=== PATIENT | female | born 1975 | race Caucasian/White ===

== ENCOUNTER 2018-12-11 13:01 | Observation (INO) | payer SELFPAY ==
[2018-12-04 16:15] LABS: Hematocrit 38.7 % (37-47); Hemoglobin 12.2 g/dl (12.0-15.0); Mean Corp Hgb Conc 31.5 g/gl (32-36); Mean Corpuscular Hgb 27.4 pg (27.0-32.0); Mean Corpuscular Volume 86.8 fL (81-99); Mean Platelet Vol. 9.4 fl (6.2-12.0); Platelet Count 419 K/mm3 (150-450); RBC Distribution Width CV 14.8 % (11.6-14.6); RBC Distribution Width SD 46.7 fl (35.1-43.9); Red Blood Count 4.46 M/mm3 (4.2-5.4); White Blood Count 7.2 K/mm3 (4.4-11.0)
[2018-12-04 16:16] LABS: Scan Indicated on CBC? Y/N NO
[2018-12-04 16:28] LABS: Partial Thromboplast Time 28.6 Seconds (24.1-36.2); Prothrombin Time (Protime)PT. 13.1 SECONDS (11.7-14.9)
[2018-12-04 16:38] LABS: Anion Gap 7 (5-15); BUN 12 mg/dL (7-18); BUN/Creat Ratio 16.5 RATIO (10-20); Calcium,Total 8.7 mg/dL (8.5-10.1); Chloride 107 mmol/L (98-107); Creatinine, Serum 0.73 mg/dL (0.55-1.02); EST Glomerular Filtration Rate 94 mL/min (>60); Est Glom Filt Rate - Afr Amer 113 mL/min (>60); Glucose 86 mg/dL (74-106); Potassium 3.5 mmol/L (3.5-5.1); Sodium Level 141 mmol/L (136-145)
[2018-12-11] VITALS (13 sets, daily range): BP systolic 85–124; BP diastolic 54–71; PULSE 56–78; RESP 16–18; TEMP 36.2–37.6; O2SAT 91–100; BMI 36.9
--- NOTE | 2018-12-11 00:33 | PCM.HPOB.BLA ---
- Problem List (1) Uterine fibroid Status: Acute Qualifiers: Uterine leiomyoma location: unspecified location Qualified Code(s): D25.9 - Leiomyoma of uterus, unspecified (2) Chronic pelvic pain in female Status: Chronic History and Physical Date of Admission: 12/11/18 Date: 12/11/2018 Name: VENESSA ADORNO Age: 43 Date of : 1975 Venessa Adorno, a 43 year old female 0 , presents for MICHELLE CHAVEZ on December 11, 2018 at 11:20. -- Pre-Op -- Venessa was referred for fibroids that have been found on u/s with PCP. Patient was seen by PCP beginning for pelvic pain she has been experiencing. Patient states that pain started about 6 months ago and was mostly with menses she states that over the past couple of months pain has started to be daily. Patient states that she conitnues with pain daily feels like she is going to start menses. Patient states that pain will radiate to her back. Patient has h/o normal pap's with most recent pap in 2019. Patient states that menses are regular and monthly. Patient and are not using anything for control with prior hx male factor infertility. Plan for LAVH/BS on 12-11-18. MEDICATIONS HISTORY: None ALLERGIES: No Known Drug Allergies Infections - Chicken pox Illnesses - none Accidents - None Hospitalizations - None pap 2018; Review of Systems: GENERAL - Denies fever, or chills SKIN - Denies skin changes EYES - Denies visual changes EARS - Denies difficulty hearing NOSE - Denies nasal congestion or bleeding MOUTH - Denies sore throat or difficulty swallowing NECK - Denies pain or swelling RESPIRATORY - Denies shortness of breath or wheezing CARDIOVASCULAR - Denies palpitations or chest pain GASTROINTESTINAL - Denies nausea, vomiting, diarrhea, constipation GENITOURINARY - Denies dysuria, frequency of urination, incontinence of urine MUSCULOSKELETAL - Denies joint or muscle pain NEUROLOGICAL - Denies localized numbness or weakness PSYCHIATRIC - Denies depression or anxiety ENDOCRINE - Denies heat or cold intolerance, weight loss or gain HEMATO-IMMUNOLOGIC - Denies excesive bleeding with cuts SOCIAL HISTORY: Alcohol Use - denies drinking Smoking - denies smoking Diet - no special diet Lifestyle - Exercise - active Seat Belt Use - only when riding in the front Employer - stays at home Illicit Drug Use - denies use of street drugs Sexual Activity - Spouse-Sig Other Name - Jose Spouse-Sig Other Occupation - [employer] Control - none FAMILY HISTORY: MENSTRUAL HISTORY: LMP Known?- DefiniteAmount/Duration - 4- 5days, Regularity - regular, Frequency - monthly days, LMP - 12/01/18, Age Onset Menarche - 16 SURGICAL HISTORY: 1. [place] Teeth Removal ; - PHYSICAL EXAM BP- 100/86 Sitting, Right arm, large cuff Temp- 98.5 Weight- 205.16444 lbs Height- 60.75 inch BMI:39.14 CONSTITUTIONAL - NAD, well nourished, and well developed SKIN - No rash, lesions, or ulcers HEENT - normocephalic, atraumatic, sclerae anicteric LUNGS - CTA x2 without wheezes, crackles or rales CARDIAC - Regular rate and rhythm without rubs, murmurs, or gallops ABDOMEN - Without hepatosplenomegaly, distention, masses, rebound, or guarding; normal bowel sounds; no hernias EXTREMITIES - No edema or calf tenderness NEUROLOGICAL - normal gait, normal balance, normal motor PSYCHIATRIC - A and O to time, place, person, mood and affect External Genitial Vagina - non-tender without lesions Urethra/Urethral Meatus - non-tender Bladder - non-tender Vagina - vaginal blas are pink and moist without loss of rugae and no evidence of atropy Cervix - without cervical motion tenderness and has normal size and features without evident lesions Uterus - enlarged uterus 10 wks, wt 175-275 g Adnexa - clear without massess or tenderness Pelvic US 10/23/18 Uterus 8.5cm with EM stripe 12mm. 3.9cm fibroid in anterior myometrium with heterogeneous attenuation. The right ovary 3.3 x 1.9 x 2.6cm and the left ovary 3.1 x 1.5 x 2.6cm. Within the left ovary is a small hypoechoic area 1.7cm in size possibly representing a hemorrhagic cyst. A small amount of free fluid in pelvis. ASSESSMENT/PLAN: 1. Intramural Leiomyoma Of Uterus and Pelvic And Perineal Pain US with fibroid uterus and exam with uterine tenderness with palpable fibroid - cannot r/o adenomyosis however Plan LAVH, BS - Consents signed and reviewed.
[2018-12-11 08:21] LABS: Internal QC Validated? YES +Cl - CLEAR BKGD; Pregnancy, Urine Negative Negative
[2018-12-11] MEDS: Heparin Injection (Vial) 5,000 UNIT/ML VIAL 5000 UNIT SC ×2 (08:33→17:52)
--- NOTE | 2018-12-11 09:55 | HYST_PTH ---
PATIENT: BRITTNI EASON LOC: [facility] U#:[id number] AGE/SX: 43/F ROOM: [facility]320 RE12/11/[address]: Dr. Karen Harrington MD : 1975 BED: 1 DIS: 12/12/2018 SPEC #: [id number] RECD: 12/11/18 13:52 STATUS: JULIENNE REIsa #: [id number] DOMINGA: 12/11/18 09:[address]: Karen Nobles DEPT: SURGICAL PATHOLOGY RECD BY: Gurvinder Larson ENTERED: 12/11/18 14:22 SP TYPE: HYSTERECT OTHR DR: Dr. Ro Red DO Tissues: Uterus, NOS Procedures: Surgery Specimen Level V HEADER OPERATION: Laparoscopic assisted vaginal hysterectomy, bilateral salpingectomy PRE-OP DIAGNOSIS: Fibroid uterus, pelvic pain TISSUE SUBMITTED: Uterus, cervix, bilateral fallopian tubes MICROSCOPIC DIAGNOSIS Uterus, hysterectomy: Cervix - mild chronic inflammation. Endometrium - proliferative endometrium. Myometrium - leiomyomas. Right fallopian tube - no pathologic change. AM:diane 12/12/18 MICROSCOPIC DESCRIPTION Slides are reviewed. GROSS DESCRIPTION Received in fixative is one container labeled with the patient's name and designated uterus, cervix, bilateral fallopian tubes. The specimen consists of a hysterectomy specimen consisting of uterus with cervix and attached bilateral fallopian tubes. The uterus with cervix weighs 120 gm and measures 11 x 7 x 5 cm. The endocervical canal measures 3 cm in length and endocervical mucosa is unremarkable. The endometrial cavity is compressed to one side and measures 4.5 cm in length and 2 cm in width. Sections of the uterine wall reveal multiple nodular masses with the largest mass measuring 5 cm in greatest dimension. Sections of these masses reveal garcia whorled cut surfaces without areas of hemorrhage, necrosis or cystic degeneration. The uninvolved uterine wall measures up 2 cm in thickness. The right fallopian tube measures 5.5 cm in length and 0.8 cm in diameter. The fimbrial end is identified. Sections reveal unremarkable cut surfaces. The left fallopian tube is similar appearance to right and measures 6.5 cm in length and 0.7 cm in diameter. Criminal Legal Assistant sections are submitted in ten as follows: 1 - anterior cervix, 2 - posterior cervix, 3 & 4 - anterior uterine wall, 5 & 6 - posterior uterine wall. Sections of the uterine wall also contain smaller nodular masses, 7 & 8 - largest nodular mass, 9 - right fallopian tube, 10 - left fallopian tube. / SJ:diane 12/11/18 TC:1 CPT: 18398
[2018-12-11] MEDS: Bupivacaine Mpf 0.5% 30 ML VIAL (11:00)
[2018-12-11] MEDS: Vasopressin 20 UNITS/ML Vial (12:00)
[2018-12-11] MEDS: Ketorolac 30 MG/ML Syringe IV ×2 (13:00→20:25)
--- NOTE | 2018-12-11 13:14 | OP.PCM_ITS ---
Problem List (1) Uterine fibroid Status: Acute Qualifiers: Uterine leiomyoma location: unspecified location Qualified Code(s): D25.9 - Leiomyoma of uterus, unspecified (2) Chronic pelvic pain in female Status: Chronic (3) Endometriosis Status: Acute Report of Operation Date of Procedure: 12/11/18 Pre-Operative Diagnosis: Chronic pelvic pain, symptomatic uterine fibroids Post-Operative Diagnosis: Chronic pelvic pain, symptomatic uterine fibroids Surgery/Procedure Performed:: Assisted vaginal hysterectomy, bilateral salpingectomy Description of Surgical Findings:: Left ovarian endometrioma, normal-appearing tubes bilaterally, fibroid uterus approximately 8 weeks size. Uterosacral endometriosis. compensation advisor: Radha Randhawa compensation advisor: Breanna Chavez Type of Anesthesia:: General, Local Anesthesiologist: Jesse Ibanez Special Medications: vasopressin Specimen's removed: uterus, cervix, bilateral tubes Estimated Blood Loss (mL): 150ml Fluids Replaced: 1000ml Description of Procedure: Indications: Page is a 43-year-old nulligravida with a history of chronic pelvic pain found to have a fibroid uterus on ultrasound. On examination she had painful uterus suggestive of degenerative fibroid versus adenomyosis. Following counseling patient opted to proceed with upper scopic assisted vaginal hysterectomy with bilateral salpingectomy and ovarian conservation. Procedural risks, benefits, indications and alternatives were reviewed patient desired to proceed. Procedure: The patient was taken to the operating room and Center was performed. She is placed on dorsal supine position and induced under general anesthesia and intubated. She is then placed into dorsal lithotomy and her arms were tucked at her sides. An examination under anesthesia was performed. The perineum and abdomen were prepped and draped in sterile fashion. Patient was placed in high lithotomy and a Rangel catheter was placed into the bladder. A speculum was placed into the vagina and cervix visualized and grasped the ante rior cervical lip using a single-tooth tenaculum and a con cannula was placed for uterine manipulation. The speculum was removed the patient was placed into low lithotomy. Attention was then turned to the abdomen. 5 cc of percent bupivacaine was administered at the inferior umbilicus. An incision was made and Veress needle placed with successful hanging drop test and no aspirate. The abdominal cavity was insufflated to 15 mmHg. There is needle was removed and a 5 mm was placed under laparoscopic guidance. The patient was then placed into Trendelenburg. Under transillumination right and left lower quadrant incisions were made following administration of half percent bupivacaine and ports were placed. A fourth port was also placed suprapubically following bupivacaine administration. The abdomen and pelvis were inspected and notable for bilateral uterosacral endometriotic implants as well as filming sigmoid on a left pelvic sidewall adhesions. The uterus was knobby in appearance with the round ligament contracted towards the left side. I proceeded with right salpingectomy in the Enseal device to clamp coagulate and cut the right mesosalpinx to the level of the uterine cornua. The uterine ovarian ligament was subsequently coagulated clamped and cut as well as the round ligament. The anterior broad ligament was opened and further dissected sharply and bluntly euthanizing the uterine vessels and creating a bladder flap. The same was done on the left with completion of the bladder flap. The uterine vessels were coagulated and cut using the Enseal device bilaterally. At this time attention was then turned to the perineum. The patient was placed into high lithotomy and taken out of Trendelenburg positioning. A weighted speculum was placed into the vagina and cervix grasped using a Bonner tenaculum after removal of the uterine manipulator. Interferential incision was made along the cervix and the vesicocervical membrane was sharply dissected using Metzenbaum scissors to identify the anterior peritoneum. The peritoneum was incised into the anterior cul-de-sac and a curved [place] was placed at the site. Attention was then turned posteriorly the rectovaginal septum was entered to the level of the uterosacrals however the uterosacral ligaments were significantly thickened and scarred. This time I called for assistance from Dr. Chavez to aid me and posterior entry. Posterior entry was facilitated by palpation of the apical cardinal ligament via the anterior cul-de-sac and grasping that posteriorly using a Elena clamp bilaterally. The area that was grasped was then subsequently incised to allow opening along the other side of the uterosacrals. The uterosacral ligaments were subsequently José Antonio clamps bilaterally cut and suture ligated using 0 Vicryl suture. The uterus and tubes were removed en bloc. There was some bleeding from the left adnexal peritoneum controlled using a [id number]-[id number] suture. Section of the adnexa incidental left ovarian cyst drainage was performed revealing endometrioma. The endometrioma was drained. A modified Ulrich culdoplasty was performed incorporating the uterosacral pedicles with the posterior and anterior pelvic peritoneum using 0 Vicryl suture. The vaginal cuff was reapproximated using serial [id number] sutures with good hemostasis at the site. The patient was then placed into low lithotomy and attention again turned to the abdomen. Laparoscopy was again performed. The pelvis was irrigated and suctioned with excellent hemostasis. The procedure was complete. The abdomen was desufflated and trochars were removed from the belly. The skin was closed using 4-0 Monocryl and additional 10 cc of quarter percent bupivacaine was administered locally. Steri-Strips and OpSite were placed over the incisional wounds. The Rangel catheter was removed. The patient was then placed into dorsal supine position, awakened, extubated and transferred to the recovery room without complication. Sponge and needle counts were correct x2. Patient tolerated the procedure well. - Complications None - Admit VTE Documentation VTE Present on Admission: No VTE Mechan Device Prophylaxis: SCD's VTE Pharm Prophylaxis ordered?: No
[2018-12-11] MEDS: Lactated Ringers 1,000 ML 125 ML IV ×2 (15:26→22:35)
[2018-12-11] MEDS: oxyCODONE 5 MG Tablet PO (17:52)
[2018-12-12] MEDS: Acetaminophen 500 MG Tablet 1000 MG PO (01:14)
[2018-12-12 01:30] VITALS: BP 101/62; PULSE 84; RESP 16; TEMP 37.9; O2SAT 93
[2018-12-12] MEDS: Ketorolac 30 MG/ML Syringe IV (03:06)
[2018-12-12] MEDS: Heparin Injection (Vial) 5,000 UNIT/ML VIAL 5000 UNIT SC (05:57)
[2018-12-12 07:19] VITALS: O2SAT 94
[2018-12-12 07:20] LABS: Hemoglobin 11.3 g/dl (12.0-15.0); Mean Corp Hgb Conc 32.3 g/gl (32-36); Mean Corpuscular Hgb 27.5 pg (27.0-32.0); Mean Corpuscular Volume 85.2 fL (81-99); Mean Platelet Vol. 8.7 fl (6.2-12.0); Platelet Count 353 K/mm3 (150-450); RBC Distribution Width CV 14.9 % (11.6-14.6); RBC Distribution Width SD 46.6 fl (35.1-43.9); Red Blood Count 4.11 M/mm3 (4.2-5.4); White Blood Count 11.4 K/mm3 (4.4-11.0)
[2018-12-12 07:24] LABS: Scan Indicated on CBC? Y/N NO
[2018-12-12 07:48] LABS: Creatinine, Serum 0.79 mg/dL (0.55-1.02); EST Glomerular Filtration Rate 85 mL/min (>60); Est Glom Filt Rate - Afr Amer 103 mL/min (>60); Estimated Creatinine Clearance 74.12 ml/min
[2018-12-12 07:56] VITALS: BP 116/57; PULSE 77; RESP 14; TEMP 36.7; O2SAT 98
--- NOTE | 2018-12-12 08:10 | DCINST_ITS ---
Discharge Diet: No Restrictions Discharge Activity: Return to Normal Activity, May not drive while taking narcotic pain medications., May Shower, - - No tub bath for 2 weeks May resume sexual activity in: 6 weeks Lifting Restrictions: 10 lb Call your doctor if your incision/area has: Continuous Slow Oozing, Sudden Increased Bleeding, Increased Pain/ Swelling, Increased Redness Call your doctor if you observe: Fever of 101 or Higher, Inability to urinate, Inability to have a bowel movement, Using more than one pad per hour, Shortness of breath, Chest pain, Calf discomfort, Uncontrolled pain Suture Line Care: Avoid Pulling/Pushing Remove Dressing in (days):: 3 - Saturday remove small strips of tape Cleanse incision/area with: Soap & Water Allergies/Adverse Reactions: Allergies No Known Allergies Allergy (Verified 12/11/18 08:18) Medications to take at Discharge Multivitamin [Daily Multiple Vitamin] 1 each PO DAILY 12/04/18 Docusate Sodium [Colace] 100 mg PO BID PRN PRN #60 capsule 12/12/18 Ibuprofen 600 mg PO TID PRN #30 tablet 12/12/18 Oxycodone [Oxyir] 5 - 10 mg PO Q6H PRN PRN 7 Days #20 tablet 12/12/18 The following prescriptions were given: Oxycodone [Oxyir] 5 - 10 mg PO Q6H PRN PRN 7 Days #20 tablet PRN Reason: Mod-Severe Pain (4-10/10) Docusate Sodium [Colace] 100 mg PO BID PRN PRN #60 capsule PRN Reason: Constipation Ibuprofen 600 mg PO TID PRN #30 tablet PRN Reason: Pain Primary Care Physician: Ro Red DO [Primary Care Provider] - Test Results: Test results from this visit will be discussed in further detail at your follow- up appointment, if applicable. Please Follow Up With: Karen Cruz MD When: 1-2 weeks
[2018-12-12] MEDS: Ketorolac 10 MG Tablet PO (09:14)
== END 2018-12-12 10:00 | disposition home or self-care (01) ==
LOC: SDC 14:01
PROVIDERS: Anesthesiology; Admitting Provider Obstetrics & Gynecology; Referring Provider Obstetrics & Gynecology; Visit Provider Obstetrics & Gynecology
PROC: 0UT9FZZ Resection of Uterus, Via Natural or Artificial Opening With Percutaneous Endoscopic Assistance (ICD-10-PCS; CPT 58552; principal; 2018-12-11 09:30)
DX: D25.9 Leiomyoma of uterus, unspecified (principal); N72 Inflammatory disease of cervix uteri; G89.29 Other chronic pain; N80.0 Endometriosis of uterus; N80.8 Other endometriosis; N80.1 Endometriosis of ovary
CPT/HCPCS: 00840; 58552; 36415; 80048; 81025; 82565; 85027; 85610; 85730; 86850; 86900; 88307; 94762; 96361; 96372; 96374; 96376; 99218; J7120; C1760; G0378; G0379; J2405

== ENCOUNTER → 2023-12-24 | Outpatient (CLI) | payer SELFPAY, OTHER ==
--- NOTE | 2023-12-24 09:41 | BI_ITS ---
MAMMOGRAPHY - BILATERAL SCREENING REASON FOR EXAM: Female, 48 years old. Routine annual screening examination. PERTINENT HISTORY: Aunt with breast cancer. TECHNIQUE: Digital bilateral breast mayito (3D mammographic acquisition) in the CC and MLO projections. 2-D mediolateral oblique (MLO) and craniocaudad (CC) views of both breasts were obtained. CAD: Full Field Digital Mammography with Computer Added Detection was performed. COMPARISON: Comparison is made with prior study dated March 10, 2012. FINDINGS: Breast Composition: The breasts are heterogeneously dense, which may obscure small masses. There is a 1.2 cm x 0.6 cm well-defined nodule in the deep upper lateral aspect of the left breast. There is also evidence of a 1.3 cm x 0.6 cm well-defined nodule in the lateral retroareolar region of the right breast. Correlation with ultrasound recommended. No other significant abnormalities are identified. BI/SCRN MAMM (CAD)W/MAYITO BILAT IMPRESSION: Well-defined bilateral breast nodules as described. Correlation with ultrasound is recommended. ASSESSMENT CATEGORY: Approximately 10% of breast cancers are not detected by mammography. A normal mammogram should not delay biopsy of a clinically suspicious abnormality. [id number] Electronically Signed: Dao Fofana MD at 10:59 EDT ,
== END | disposition home or self-care (01) ==
LOC: OPBI 09:11
PROVIDERS: Referring Provider Advanced Practice Midwife; Visit Provider Advanced Practice Midwife
DX: Z12.31 Encounter for screening mammogram for malignant neoplasm of breast (principal); Z80.3 Family history of malignant neoplasm of breast
CPT/HCPCS: 77063; 77067

== ENCOUNTER → 2023-12-31 | Outpatient (CLI) | payer SELFPAY ==
--- NOTE | 2023-12-31 08:47 | US_ITS ---
STUDY: ULTRASOUND BREAST - RIGHT REASON FOR EXAM: Female, 48 years old. Abnormal screening mammogram. TECHNIQUE: Axial and longitudinal images of the RIGHT breast were performed with a high resolution ultrasound transducer. # OF IMAGES: 16 COMPARISON: Comparison is made with prior mammogram dated December 24, 2023. FINDINGS: RIGHT Breast: There is a 1.2 cm x 1.5 cm x 0.7 cm well-defined hypoechoic nodule at the 7:00 position of the breast at 2 cm from the nipple. Increased vascularity is seen within it. This most likely represents a fibroadenoma although biopsy recommended. IMPRESSION: 1.2 cm x 1.5 cm x 0.7 cm well-defined hypoechoic nodule at the 7:00 position of the breast at 2 cm from the nipple. Biopsy recommended. ASSESSMENT CATEGORY: BIRADS Category 4: Suspicious - Biopsy Should Be Considered. A letter regarding these results will be sent to the patient by the facility within 30 days. Electronically Signed: Dao Fofana MD at 11:14 EDT , STUDY: ULTRASOUND BREAST - LEFT REASON FOR EXAM: Female, 48 years old. Abnormal screening mammogram. TECHNIQUE: Axial and longitudinal images of the LEFT breast were performed with a high resolution ultrasound transducer. # OF IMAGES: 16 COMPARISON: Comparison is made with prior mammogram dated December 24, 2023. FINDINGS: LEFT Breast: The mammographic abnormality corresponds to a 7 mm x 6 mm x 7 mm hypoechoic slightly irregular nodule at the 3:00 position of the breast at 9 cm from the nipple. Biopsy recommended. US/Breast Limited Unilateral IMPRESSION: 7 mm x 6 mm x 7 mm hypoechoic slightly irregular nodule at the 3:00 position of the breast at 9 cm from nipple. Biopsy recommended. ASSESSMENT CATEGORY: BIRADS Category 4: Suspicious - Biopsy Should Be Considered. A letter regarding these results will be sent to the patient by the facility within 30 days. Electronically Signed: Doa Fofana MD at 11:15 EDT ,
== END | disposition home or self-care (01) ==
LOC: OPUS 08:44
PROVIDERS: Referring Provider Nurse Practitioner Women's Health; Visit Provider Nurse Practitioner Women's Health
DX: N63.14 Unspecified lump in the right breast, lower inner quadrant (principal)
CPT/HCPCS: 76642

== ENCOUNTER → 2024-01-08 | Outpatient (CLI) | payer OTHER, SELFPAY ==
--- NOTE | 2024-01-08 10:12 | BRBX_PTH ---
PATIENT: BRITTNI EASON LOC: [facility] U#:[id number] AGE/SX: 48/F ROOM: RE01/08/[address]: Dr. Larry Gomes MD : 1975 BED: DIS: 01/08/2024 SPEC #: [id number] RECD: 01/08/24 11:42 STATUS: JULIENNE ORTEGA #: [id number] DOMINGA: 01/08/24 10:[address]: Larry Gomes DEPT: SURGICAL PATHOLOGY RECD BY: Sharon Jade Tissues: A - Left breast, NOS B - Right breast, NOS Procedures: Surgery Specimen Level IV HEADER OPERATION: Excisional biopsy of right breast and core needle biopsy of left breast nodule PRE-OP DIAGNOSIS: Left breast nodule TISSUE SUBMITTED: A- Left breast tissue, B- Right breast tissue MICROSCOPIC DIAGNOSIS A. Left breast tissue, core biopsy: Fragments of benign adipose tissue and skeletal muscle tissue. Negative for atypia or malignancy. See comment. B. Right breast tissue, excisional biopsy: Fibroadenoma with ductal dilatation and adenosis. Negative for atypia or malignancy. See comment. / 01/09/2024 COMMENT A. Breast tissue not identified in specimen. B. The lesion appears to be completely excised. MICROSCOPIC DESCRIPTION Slides are reviewed. GROSS DESCRIPTION A. Received in fixative is one container labeled with the patient's name and designated Left breast nodule. The specimen consists of multiple elongated fragments of garcia-yellow fibroadipose tissue that in aggregate measure 1.0 x 0.5 x 0.1 cm. The specimen is totally submitted in one cassette. B. Received in fixative is one container labeled with the patient's name and designated Right breast tissue. The specimen consists of a piece of garcia-yellow fibroadipose tissue measuring 2.0 x 1.5 x 1.0cm. Sections reveal garcia solid nodule measuring 1.0 x 0.7 x 1.0cm. The specimen is serially sectioned and submitted entirely in two cassettes. / 01/08/2024 TC:1 CPT:68734q8
== END | disposition home or self-care (01) ==
LOC: LABSPEC 11:46
PROVIDERS: Referring Provider Surgery; Visit Provider Surgery
DX: L98.9 Disorder of the skin and subcutaneous tissue, unspecified (principal)
CPT/HCPCS: 88305

== ENCOUNTER 2024-01-24 11:52 | Day surgery (SDC) | payer SELFPAY, OTHER ==
[2024-01-24] VITALS (8 sets, daily range): BP systolic 113–126; BP diastolic 80–95; PULSE 73–82; RESP 16; TEMP 36.6–36.8; O2SAT 97–100; BMI 39.1
--- NOTE | 2024-01-24 12:18 | BI_ITS ---
SURGICAL BREAST SPECIMEN RADIOGRAPH CLINICAL: Document presence of tissue clip marker in biopsy specimen. FINDINGS: Specimen shows presence of tissue clip marker. Electronically Signed: Dao Fofana MD at 15:18 EDT , BI/Breast Biopsy Specimen IMPRESSION: undefined
[2024-01-24] MEDS: Lactated Ringers 1,000 ML 15 ML IV (12:45)
--- NOTE | 2024-01-24 13:30 | BREAST_PTH ---
PATIENT: BRITTNI EASON LOC: [facility] U#:[id number] AGE/SX: 48/F ROOM: RE01/24/[address]: Dr. Larry Gomes MD : 1975 BED: DIS: 01/24/2024 SPEC #: [id number] RECD: 01/24/24 14:43 STATUS: JULIENNE JORDAN #: [id number] DOMINGA: 01/24/24 13:[address]: Larry Gomes DEPT: SURGICAL PATHOLOGY RECD BY: Petros Ghosh ENTERED: 01/27/24 07:22 SP TYPE: BREAST OTHR DR: No Primary Care Phys Tissues: Left breast, NOS Procedures: Surgery Specimen Level IV HEADER OPERATION: Left stereo wire loc & excision, left breast mass or biopsy PRE-OP DIAGNOSIS: Breast mass, left TISSUE SUBMITTED: Left breast mass MICROSCOPIC DIAGNOSIS Left breast mass, excision with wire localization: Fibroadenoma with focal area of hyalinization and adenosis (0.7cm in greatest dimension). Negative for atypia or malignancy. See comment. /mr 01/29/2024 COMMENT Ischemic Time: 1 minute Fixation Time: 5 hours Please make reference to previous specimen [id number] left breast tissue, core biopsy diagnosis of fragments of benign adipose tissue and skeletal muscle tissue and right breast tissue, excisional, biopsy with diagnosis of fibroadenoma with ductal dilatation and adenosis. Clinical correlation and appropriate follow up are necessary. MICROSCOPIC DESCRIPTION Slides are reviewed. GROSS DESCRIPTION Received in fixative is one container labeled with the patient's name and designated Left breast mass. The specimen consists of an oriented fragment of garcia-yellow fibrofatty tissue measuring 4.2 x 4.2 x 1.6cm and containing a metallic wire. The specimen is inked and serially sectioned and reveal white-garcia cut surfaces. No distinct mass lesions are identified. The specimen is totally submitted in seven cassettes after additional fixation. /mr 01/27/2024 TC:1 [facility]: [id number]
--- NOTE | 2024-01-24 13:34 | HP.PCM_ITS ---
History and Physical Date of Admission: 01/24/24 Date of Service: 01/15/24 MR#: [id number] Acct: [id number] Name: BRITTNI ADORNO Rep #: [id number] : 1975 Provider: Dr. Larry Gomes MD Age/Sex: 48/F Location: [facility] Status: Signed Intake Vital Signs 01/07/2409:43 Height 5 ft 2 in Weight: 213 lb BMI 38.9 BP 116/87 H Blood Pressure Location Rt brachial Position Sitting Respiration 17 Pulse 73 Pulse Source Monitor Temp 97.2 F L Temp Source Temporal Pulse Oximetry (%) 98 Oxygen Delivery Method room air Intake Visit Reasons: 1 WK WOUND CHK Chief Complaint: birads 4 Acquisitions Assistant Required: No Is patient in pain?: No Allergies No Known Allergies Allergy (Verified 01/15/24 08:08) Medications multivitamin (Daily Multiple tablet) 1 ea PO DAILY 12/04/18 [History Confirmed 01/15/24] docusate sodium 100 mg capsule (DOK) 100 mg PO BID PRN PRN Constipation #60 caps 12/12/18 [Rx Confirmed 01/15/24] ibuprofen 600 mg tablet 600 mg PO TID PRN Pain #30 tabs 12/12/18 [Rx Confirmed 01/15/24] PFSH Medical History (Updated 01/15/24 @ 19:[address] Larry Gomes MD) Abnormal finding on breast imaging Breast mass, left Breast mass, right Screening breast examination Surgical History S/P hysterectomy Family History Aunt Breast cancerUncle Cancer prostate cancer, paternal Social History Smoking Status: Never smoker HPI HPI HPI: Patient is a 48-year-old female who presents for follow-up of recent incidental mammographic finding. She made her first consultation visit on 01/08/2024. She reports today for wound check and discussion of next steps. She presents to today's visit with her . She denies any significant pain from her biopsy sites but shares that sites are sometimes uncomfortable. She notes that the right side has had more significant bruising on the left side which has been minimal. Below is recapitulated from patient's prior visit for ease of review: Mrs. Adorno reportedly was responding to a solicitation for patients to undergo mammography at a discounted rate when the areas of concern in her bilateral breast were detected. However, she does relate that approximately 16 years ago she underwent ultrasound and surgical evaluation for a right breast lesion which she feels to this day. Based on follow-up sonographic imaging criteria of the 2 areas in question radiology gave each lesion a rating BI-RADS 4. While Mrs. Adorno denies any prior biopsy, she does acknowledge that she has been previously diagnosed with fibrocystic breast change. She underwent menarche at the age of 16. She has had 0 pregnancies and 0 live births. Patient has no first-degree relatives with breast cancer, but shares that she did have a maternal aunt who was diagnosed with breast cancer in her 40s (this individual is now in their 70s). There is no tenderness with the present finding. There is no nipple discharge associated with this finding. Patient is not prescribed any blood thinners. Exam Const General: cooperative and comfortable Chest Other: Significant ecchymosis to right breast and to a lesser degree left breast at the biopsy site. Steri-Strips are initially intact but are removed. Patient's curvilinear areolar incision on the right is well-approximated and well-healing without redness or drainage. Ultrasound is applied to patient's left breast and identify my marker clip at 11 cm lateral to the left nipple. Assessment and Plan Assessment and Plan (1) Breast mass, left: Status: Acute Comment: Patient with a 0.7 cm left breast mass located at a 2 cm depth approximately 11 cm from the nipple (reported by radiology as 9 cm) that was amenable to core needle biopsy and this was also undertaken at her consultation visit on 01/08/2024. However, patient's pathology showed only traces of adipose tissue and skeletal muscle without even breast tissue identified. With this discordance I have recommended proceeding for wire localized excisional biopsy of the identified area in the left breast. The procedure was described in detail and patient was receptive of the recommendation. I did describe that we will plan to place the wire using stereotactic localization given the small size of the lesion in question. Will otherwise plan to perform procedure as an outpatient disposition. Plan: Stereotactic placement of wire for localization of left breast mass. Plan for operative excisional biopsy of left breast mass via this localization. (2) Breast mass, right: Status: Acute Comment: Patient is a 48-year-old female who appears to be at average risk for breast cancer (her calculated Lynn model risk was 0.9% at 5 years) based on history, but who presents for a rediscovered right breast mass. Patient shares that she was initially diagnosed with a small nodule of her right breast at the age of 32 and was seen by a surgeon but no biopsy was recommended or undertaken. She shares that this area has remained stable and does confirm this is the same area that was detected during mammogram and subsequent ultrasound. However, despite this stability and because of patient's BI-RADS rating of 4 and the accessibility of the lesion I recommended excisional biopsy in clinic. Patient was receptive of this recommendation and the area was first localized using ultrasound for incision planning before the procedure was undertaken in an uncomplicated fashion during today's visit. This detail is given in the procedures section of this note. Patient was given wound care instructions and we will plan to follow-up with her in 1 week to review her wound healing progress as well as review her pathology. As noted by radiology this lesion is highly suspicious for a fibroadenoma. Update 01/15/2024: Patient's mass was excised in total at her consultation visit and indeed her pathology confirmed suspicion for fibroadenoma. The biopsy site is well-healing but significantly bruised. Patient is advised to apply thin strip of triple antibiotic ointment to incision and inform no further follow-up is required for this issue. I have examined the patient and the H&P has been reviewed. There are no clinical changes since date of exam.Procedure and post procedure expectations were reviewed with the patient and her spouse have any further questions. Proceed to the operating room for excisional biopsy of breast mass after wire localization earlier today.
[2024-01-24] MEDS: Cefazolin 2 GM in 0.9% Normal Saline (100mL Bag) 100 ML IV (13:40)
[2024-01-24] MEDS: Bupivacaine Mpf 0.5% 30 ML VIAL (14:41)
--- NOTE | 2024-01-24 14:52 | OP.PCM_ITS ---
Report of Operation Date of Procedure: 01/24/24 Pre-Operative Diagnosis: Suspicious left breast mass Post-Operative Diagnosis: Same Surgery/Procedure Performed:: 1. Stereotactic wire localization of left breast mass 2. Wire localized excisional biopsy of left breast mass Description of Surgical Findings:: ? Bard localization wire just superficial to area of interest ? Final specimen with normal breast tissue circumferentially present about area of interest and mammographic snapshot showing entirety of wire as well as initial biopsy marker Surgeon: Larry Gomes blueprinting machine operator: Radha Randhawa Type of Anesthesia: MAC/Supplemental/Local Anesthesiologist: Jerman Alarcon Special Medications: None Specimen's removed: Left breast tissue Estimated Blood Loss (mL): 5 Description of Procedure: Patient presented to the mammography suite where she was positioned on the mammography table and placed into compression. Stereo images were taken of the left breast and the biopsy clip was targeted. A wire placement depth of 39 mm was selected to ensure that we were 1 cm beyond the clip. Then the surface of the breast was cleansed with povidone iodine and the needle was guided into position. X-ray views were obtained to confirm our depth adjacent to the clip, then the wire was deployed through the needle and the needle was removed from the breast. The wire was clipped distally to desired shortness and the procedu re was terminated. Mammographic views were obtained showing the wire position adjacent to clip. Patient was then sent to the preoperative holding area. After appropriate identification in the preoperative holding area and confirmation of consents, the patient was brought to the operating room where her preoperative antibiotics were completed. She was positioned supine on the operating room table with her arms out and underwent induction with anesthesia. An LMA airway was placed. Patient's operative site was then prepped and draped in usual sterile fashion. Formal timeout was conducted to confirm both patient and procedure. Local anesthetic was instilled and an approximately 5 cm radial incision was made to include the wire. This was deepened with the use of electrocautery through Asael's fascia. Then the dissection continued deeply until I found the appropriate marking on her wire. At this point the mass was dissected free of the surrounding breast tissue with a combination of blunt dissection and electrocautery to try to take a wider margin about the termination of the wire. As the dissection proceeded we visualized the previously?place marking clip and works to include this within the center of her specimen. The mass was then completely excised along with the wire from the cavity and a well-circumscribed spherical mass could be seen adjacent to the biopsy clip grossly. The surgical cavity was packed and the specimen was sent for mammography before being sent onto pathology. Shortly thereafter mammography called to confirm that images were uploaded and we could visualize the entirety of the wire as well as the biopsy clip in the specimen. The surgical cavity was inspected for hemostasis and selective electrocautery was used to achieve it. The cavity was irrigated and all loose breast tissue was removed from the cavity. Cavity was then closed at a deep dermal level with a interrupted 3-0 Vicryl. Then the skin was closed in a subcuticular fashion with 4-0 Monocryl. Dermabond was applied as a dressing. Complications None Admit VTE Documentation VTE Mechan Device Prophylaxis: SCD's
--- NOTE | 2024-01-24 14:53 | DCINST_ITS ---
Discharge Instructions Diet Discharge Diet: No restrictions Activity Discharge Activity: May Drive (No driving while using narcotic pain medication) May shower in (days): 1 Lifting Restrictions: Limit lifting with left upper extremity to no more than 15 pounds Dressing / Incision Call your doctor if your incision/area has: Continuous Slow Oozing, Sudden Increased Bleeding, Increased Pain/ Swelling, Increased Redness, Foul Smelling Discharge and Swelling at the incision site Call your doctor if you observe: Fever of 101 or Higher Suture Line Care: Avoid Pulling/Pushing Cleanse incision/area with: Soap & Water Follow Up Care Please Follow Up With: Larry Gomes MD When: 7-10 days postop Test Results: Test results from this visit will be discussed in further detail at your follow- up appointment, if applicable. Discharge Plan Admission Primary Reason for Your Visit: Left breast mass excision Attending Provider: Larry Gomes Primary Care Provider: Georgette Russell Primary Discharge Orders/Prescriptions Prescriptions: No Action multivitamin [Daily Multiple] 1 EACH tablet 1 ea PO DAILY ibuprofen 600 MG tablet 600 mg PO TID PRN (Reason: Pain) Qty: 30 0RF Referrals / Follow Up: Care Physician,No Primary [Primary Care Provider] - Disposition Disposition (needs filled in before D/C Order can be placed): Home, Self Care
== END 2024-01-24 16:22 | disposition home or self-care (01) ==
LOC: SDC 11:54 → AC 12:01
PROVIDERS: Referring Provider Surgery; Visit Provider Surgery
PROC: (CPT 19081; principal; 2024-01-24 13:15)
DX: D24.2 Benign neoplasm of left breast (principal); Z80.3 Family history of malignant neoplasm of breast; Z90.710 Acquired absence of both cervix and uterus
CPT/HCPCS: 19081; 00400; 19281; 76098; 88305; A4648; J7120; J2405